=== PATIENT | male | born 1940 | race Caucasian/White ===

== ENCOUNTER 2018-03-16 09:14 | Outpatient (CLI) | payer OTHER | END 2018-03-16 09:31 | disposition home or self-care (01) | LOC: LAB 09:14 | DX: Z80.0 Family history of malignant neoplasm of digestive organs (principal); E11.40 Type 2 diabetes mellitus with diabetic neuropathy, unspecified; D51.1 Vitamin B12 deficiency anemia due to selective vitamin B12 malabsorption with proteinuria; I10 Essential (primary) hypertension; D50.8 Other iron deficiency anemias; D51.8 Other vitamin B12 deficiency anemias; D51.0 Vitamin B12 deficiency anemia due to intrinsic factor deficiency; D55.8 Other anemias due to enzyme disorders; K90.89 Other intestinal malabsorption; E03.8 Other specified hypothyroidism; E06.3 Autoimmune thyroiditis; R97.0 Elevated carcinoembryonic antigen [CEA]; R97.8 Other abnormal tumor markers; N34.0 Urethral abscess ==

== ENCOUNTER → 2018-03-28 | Outpatient (CLI) | payer OTHER | END | disposition home or self-care (01) | LOC: NUCLEAR 09:00 | DX: I73.9 Peripheral vascular disease, unspecified (principal); I70.218 Atherosclerosis of native arteries of extremities with intermittent claudication, other extremity; Z80.0 Family history of malignant neoplasm of digestive organs; E11.40 Type 2 diabetes mellitus with diabetic neuropathy, unspecified; D51.1 Vitamin B12 deficiency anemia due to selective vitamin B12 malabsorption with proteinuria; I10 Essential (primary) hypertension ==

== ENCOUNTER 2018-03-29 08:58 | Outpatient (CLI) | payer OTHER | END 2018-03-29 16:59 | disposition home or self-care (01) | LOC: NUCLEAR 08:58 | DX: I87.2 Venous insufficiency (chronic) (peripheral) (principal); Z80.0 Family history of malignant neoplasm of digestive organs; I73.9 Peripheral vascular disease, unspecified; D51.1 Vitamin B12 deficiency anemia due to selective vitamin B12 malabsorption with proteinuria; I10 Essential (primary) hypertension; E11.40 Type 2 diabetes mellitus with diabetic neuropathy, unspecified ==

== ENCOUNTER → 2018-06-18 09:09 | Outpatient (CLI) | payer OTHER | END | disposition home or self-care (01) | LOC: LAB 09:09 | DX: I11.9 Hypertensive heart disease without heart failure (principal); E78.2 Mixed hyperlipidemia; R74.0 Nonspecific elevation of levels of transaminase and lactic acid dehydrogenase [LDH] ==

== ENCOUNTER 2018-06-18 10:55 | Outpatient (CLI) | payer OTHER | END 2018-06-18 10:59 | disposition home or self-care (01) | LOC: SONOGRAMA 10:55 | DX: R74.0 Nonspecific elevation of levels of transaminase and lactic acid dehydrogenase [LDH] (principal) ==

== ENCOUNTER 2018-06-25 09:42 | Outpatient (CLI) | payer OTHER | END 2018-06-25 09:58 | disposition home or self-care (01) | LOC: LAB 09:42 | DX: B18.2 Chronic viral hepatitis C (principal) ==

== ENCOUNTER → 2020-04-20 09:42 | Outpatient (CLI) | payer OTHER | END | disposition home or self-care (01) | LOC: LAB 09:42 | PROVIDERS: ATTEND Internal Medicine Hematology & Oncology | DX: D50.8 Other iron deficiency anemias (principal); D69.6 Thrombocytopenia, unspecified; Z80.0 Family history of malignant neoplasm of digestive organs; D51.1 Vitamin B12 deficiency anemia due to selective vitamin B12 malabsorption with proteinuria; I70.213 Atherosclerosis of native arteries of extremities with intermittent claudication, bilateral legs; I73.89 Other specified peripheral vascular diseases; D63.1 Anemia in chronic kidney disease; D69.59 Other secondary thrombocytopenia; N18.3 Chronic kidney disease, stage 3 (moderate); E11.40 Type 2 diabetes mellitus with diabetic neuropathy, unspecified; E11.22 Type 2 diabetes mellitus with diabetic chronic kidney disease ==

== ENCOUNTER → 2020-06-09 08:11 | Outpatient (CLI) | payer OTHER | END | disposition home or self-care (01) | LOC: LAB 08:11 | PROVIDERS: ATTEND Internal Medicine Hematology & Oncology | DX: D50.8 Other iron deficiency anemias (principal); I10 Essential (primary) hypertension; D69.6 Thrombocytopenia, unspecified; R97.0 Elevated carcinoembryonic antigen [CEA]; R97.8 Other abnormal tumor markers; R97.20 Elevated prostate specific antigen [PSA]; R77.2 Abnormality of alphafetoprotein; Z80.0 Family history of malignant neoplasm of digestive organs; D51.1 Vitamin B12 deficiency anemia due to selective vitamin B12 malabsorption with proteinuria; D63.1 Anemia in chronic kidney disease; I73.89 Other specified peripheral vascular diseases; E11.22 Type 2 diabetes mellitus with diabetic chronic kidney disease; I70.213 Atherosclerosis of native arteries of extremities with intermittent claudication, bilateral legs; E11.40 Type 2 diabetes mellitus with diabetic neuropathy, unspecified ==

== ENCOUNTER → 2020-09-11 09:30 | Outpatient (CLI) | payer OTHER | END | disposition home or self-care (01) | LOC: LAB 09:30 | PROVIDERS: ATTEND Internal Medicine | DX: E11.69 Type 2 diabetes mellitus with other specified complication (principal); I13.10 Hypertensive heart and chronic kidney disease without heart failure, with stage 1 through stage 4 chronic kidney disease, or unspecified chronic kidney disease; I70.0 Atherosclerosis of aorta; Z12.11 Encounter for screening for malignant neoplasm of colon; K74.69 Other cirrhosis of liver; D69.6 Thrombocytopenia, unspecified; E78.2 Mixed hyperlipidemia; M13.0 Polyarthritis, unspecified; I50.30 Unspecified diastolic (congestive) heart failure; E55.9 Vitamin D deficiency, unspecified ==

== ENCOUNTER 2021-01-15 09:55 | Outpatient (CLI) | payer OTHER | END 2021-01-15 18:00 | disposition home or self-care (01) | LOC: LAB 09:55 | PROVIDERS: ATTEND Internal Medicine Hematology & Oncology | DX: E11.22 Type 2 diabetes mellitus with diabetic chronic kidney disease (principal); D50.8 Other iron deficiency anemias; I10 Essential (primary) hypertension; D51.8 Other vitamin B12 deficiency anemias; E03.8 Other specified hypothyroidism; R97.0 Elevated carcinoembryonic antigen [CEA]; R97.8 Other abnormal tumor markers; Z80.0 Family history of malignant neoplasm of digestive organs; D51.1 Vitamin B12 deficiency anemia due to selective vitamin B12 malabsorption with proteinuria; I70.213 Atherosclerosis of native arteries of extremities with intermittent claudication, bilateral legs; D63.1 Anemia in chronic kidney disease; D69.59 Other secondary thrombocytopenia; N18.30 Chronic kidney disease, stage 3 unspecified; E11.40 Type 2 diabetes mellitus with diabetic neuropathy, unspecified ==

== ENCOUNTER 2023-11-07 10:24 | Outpatient (CLI) | payer OTHER ==
[2023-11-07 11:17] LABS: HEMATOCRIT 45.6 % (39.0-48.0); HEMOGLOBIN 15.6 g/dL (13-16.00); MEAN CELL VOLUME 94.6 fL (80.0-100.00); MEAN CORPUSCULAR HEMOGLOBIN 32.3 pg (27.00-32.0); MEAN CORPUSCULAR HGB CONC 34.2 g/dl (32.0-36.0); RED BLOOD COUNT 4.82 M/uL (4.00-6.00); RED CELL DISTRIBUTION WIDTH 14.2 % (11.5-14.5)
[2023-11-07 11:22] LABS: PLATELET COUNT 92 K/uL (150-450)
[2023-11-07 11:38] LABS: % SATURACION 25.3 % (20-50); BILIRUBIN TOTAL 0.71 mg/dL (0.3-1.2); CALCIUM 9.2 mg/dL (8.5-10.1); CREATININE SERUM 1.24 mg/dL (0.70-1.30); FERRITIN 93.1 NG/ML (26-388); GFR 55.81; GLOBULINA 2.7 G/DL (2.4-3.5); POTASSIUM 4.34 mEq/L (3.5-5.1); PROSTATIC SPECIFIC ANTIGEN 1.53 NG/ML (0.010-4.00); TOTAL PROTEIN 6.7 gm/dL (6.4-8.2)
[2023-11-07 11:55] LABS: FOLIC ACID > 20.00 ng/ml (4.78-20)
[2023-11-08 09:09] LABS: ALPHA FETO PROTEIN 1.8 ng/mL (0.0-6.4)
[2023-11-09 15:24] LABS: MANUAL PLATELET COUNT 194
[2023-11-09 15:30] LABS: PLATELET ESTIMATE NORMAL (NORMAL)
== END 2023-11-07 10:25 | disposition home or self-care (01) ==
LOC: LAB 10:24
PROVIDERS: ATTEND Internal Medicine Hematology & Oncology
DX: Z80.0 Family history of malignant neoplasm of digestive organs (principal); D69.6 Thrombocytopenia, unspecified; D51.1 Vitamin B12 deficiency anemia due to selective vitamin B12 malabsorption with proteinuria; D63.1 Anemia in chronic kidney disease; N18.30 Chronic kidney disease, stage 3 unspecified; K70.9 Alcoholic liver disease, unspecified; B18.2 Chronic viral hepatitis C; I73.9 Peripheral vascular disease, unspecified; E11.22 Type 2 diabetes mellitus with diabetic chronic kidney disease; I10 Essential (primary) hypertension; E11.40 Type 2 diabetes mellitus with diabetic neuropathy, unspecified

== ENCOUNTER 2024-05-03 07:29 | Outpatient (CLI) | payer OTHER | END 2024-05-03 07:31 | disposition home or self-care (01) | LOC: NUCLEAR 07:29 | PROVIDERS: ATTEND Internal Medicine | DX: I20.89 Other forms of angina pectoris (principal) | CPT/HCPCS: 78452; 93017; A9500; J0153 ==

== ENCOUNTER 2025-02-21 08:29 | Outpatient (CLI) | payer OTHER ==
[2025-02-21 09:23] LABS: BASO % 0.3 % (0.1-1.2); EOS # 0.05 (0.04-0.54); EOS % 1.6 % (0.7-7.0); HEMATOCRIT 44.2 % (40.1-51.0); HEMOGLOBIN 14.8 g/dL (13.7-17.5); LYMPH % 25.2 % (19.3-53.1); MEAN CORPUSCULAR HEMOGLOBIN 31.8 pg (25.6-32.2); MONO # 0.35 (0.24-0.82); NEUT # 1.94 (1.56-6.13); RED BLOOD COUNT 4.66 M/uL (4.63-6.08); RED CELL DISTRIBUTION WIDTH 13.7 % (11.6-14.4)
[2025-02-21 09:25] LABS: PLATELET COUNT 90 K/uL (163-369)
[2025-02-21 09:33] LABS: PH,URINE 5.5 (5.0-8.0); URINE APPEARANCE Clear; URINE BILIRRUBIN Negative (NEGATIVE); URINE BLOOD Negative; URINE COLOR Yellow; URINE KETONE Negative (NEGATIVE); URINE LEUKOCYTE Negative; URINE NITRATE Negative; URINE PROTEIN Trace (NEGATIVE); URINE UROBILINOGEN 0.2 E.U./dl
[2025-02-21 09:38] LABS: URINE BACTERIA 13.4 uL (0.0-1933); URINE CAST 0.14 uL (0.0-1.40); URINE EPITHELIAL CELLS 2.5 uL (0.0-38.8); URINE GLUCOSE 100 MG/DL (NEGATIVE); URINE RBC 1.1 uL (0.0-20.8); URINE WBC 2.2 uL (0.0-23.2)
[2025-02-21 10:19] LABS: ALBUMIN 3.9 gm/dL (3.4-5.0); BILIRUBIN TOTAL 0.62 mg/dL (0.3-1.2); CALCIUM 9.2 mg/dL (8.5-10.1); CHOL HDL RATIO 3.3 (0-5.0); CREATININE SERUM 1.11 mg/dL (0.70-1.30); GFR 63.26; GLOBULINA 2.8 G/DL (2.4-3.5); POTASSIUM 4.68 mEq/L (3.5-5.1); PROSTATIC SPECIFIC ANTIGEN 1.54 NG/ML (0.010-4.00); TOTAL PROTEIN 6.7 gm/dL (6.4-8.2); TSH 3.4 uIU/mL (0.358-3.74)
[2025-02-21 11:32] LABS: ob NEGATIVE (NEGATIVE)
== END 2025-02-21 08:33 | disposition home or self-care (01) ==
LOC: LAB 08:29
DX: I13.10 Hypertensive heart and chronic kidney disease without heart failure, with stage 1 through stage 4 chronic kidney disease, or unspecified chronic kidney disease (principal); N18.30 Chronic kidney disease, stage 3 unspecified; K76.0 Fatty (change of) liver, not elsewhere classified; E78.2 Mixed hyperlipidemia; E11.29 Type 2 diabetes mellitus with other diabetic kidney complication; E03.9 Hypothyroidism, unspecified; Z12.11 Encounter for screening for malignant neoplasm of colon; R30.0 Dysuria; N40.1 Benign prostatic hyperplasia with lower urinary tract symptoms